=== PATIENT | male | born 1950 | race Caucasian/White ===

== ENCOUNTER 2018-03-25 06:45 | Day surgery (SDC) | payer MEDICARE, OTHER ==
[2018-03-23 10:42] LABS: HEMATOCRIT 42.2 % (42.0-54.0); MCH 33.5 pg (26.0-34.0); MCHC 35.5 g/dL (31.0-37.0); MCV 94.2 fL (80.0-100.0); MEAN PLATELET VOLUME 10.7 fL (7.4-10.4); RBC 4.48 10x6/uL (4.20-6.10); RDW 13.1 % (11.5-14.5); WBC 5.6 10x3/uL (4.8-10.8)
[~2018-03-25] VITALS: Ht 182.9 cm; Wt 111.1 kg
--- NOTE | ~2018-03-25 | OP ---
PATIENT NAME: ANGÉLICA TIERNEY MEDICAL RECORD: [id number] :54 LOCATION:[facility] ADMISSION DATE: SURGEON: RU LOPEZ MD DATE OF OPERATION: 03/25/2018 SURGEON: Ru Lopez MD ANESTHESIA: TIVA [employer] CRNA. DIAGNOSIS: Elevated PSA of 4.3. PROCEDURE: Transrectal ultrasound and prostate biopsy. FINDINGS: A 50-gram prostate. No hypoechoic areas. SPECIMENS: Prostate biopsy cores. BLOOD LOSS: Minimal. CLINICAL HISTORY: This is a 67-year-old male, who is referred for an elevated PSA level of 4.3. This reading was obtained on 12/22/2017. He also has obstructive voiding symptoms. He has been taking tamsulosin for 3 years for this. He still has quite significant symptoms in spite of the tamsulosin. He has an IPSS score of 11 and zsosnmi-qm-pwgc score of 2. He comes today to have a prostate biopsy performed. HE IS ALLERGIC TO PENICILLIN AND ERYTHROMYCIN. 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 DESCRIPTION OF PROCEDURE: The patient was given IV sedation. He was then placed into dorsal lithotomy position and prepped and draped. The transrectal ultrasound probe was introduced. No hypoechoic areas or intraprostatic stones were seen. Prostate biopsy cores were then obtained. Sextant biopsies were done with at least 3 cores from each sextant. Once we had all our specimens, the procedure was terminated. The patient was then brought to the preoperative holding area. I will see him in followup next week to review the pathology results with him. TRANSINT:[id number] Voice Confirmation ID: [id number] DOCUMENT ID: [id number] RU LOPEZ MD at 1402 CC: [id number] DICTATION DATE: 03/25/18 0955 DELIMER: 03/25/18 1323 [facility] 03/25/18 [id number] [place] [id number]
[~2018-03-25 06:45] MED LIST: CLOBETASOL PROP50 ML TOPICAL; DIFLUCAN100 MG PO; FLOMAX0.4 MG PO; IBUPROFEN400 MG PO; LEVOTHYROXINE125 MCG PO; RANITIDINE HCL150 M1 PO; REVATIO20 MG PO
[2018-03-25] MEDS ORDERED: BACTRIM DS1 TAB PO (07:06)
[2018-03-25 07:18] VITALS: BP 145/95; Ht 182.9 cm; Wt 111.1 kg
== END 2018-03-25 11:15 | disposition home or self-care (01) ==
LOC: D.OPS 06:45 → D.PAN 08:00 → D.OPS 08:15 → D.PAN 08:15 → D.OPS 11:15
PROVIDERS: Anesthesiology
DX: R97.20 Elevated prostate specific antigen [PSA] (principal); Z01.812 Encounter for preprocedural laboratory examination